=== PATIENT | female | born 1995 | race Caucasian/White ===

== ENCOUNTER 2018-03-16 19:16 | Emergency (ER) | payer OTHER ==
[2018-03-16 21:25] LABS: URINE BLOOD (Dip) POC 2+ (NEGATIVE); URINE GLUCOSE (Dip) POC Negative (NEGATIVE); URINE KETONES (Dip) POC Trace (NEGATIVE); URINE LEUKOCYTE EST (Dip) POC 1+ (NEGATIVE); URINE NITRITE (Dip) POC Negative (NEGATIVE); URINE TOTAL PROTEIN POC 3+ (NEGATIVE)
[2018-03-16] MEDS ORDERED: LIDOCAINE 1% (MPF) 5 ML VIAL (22:04)
[2018-03-16] MEDS: ACETAMINOPHEN 500 MG TAB PO (22:06)
[2018-03-16] MEDS: CEFTRIAXONE 1 GM INJ IM (22:06)
== END 2018-03-16 22:57 | disposition home or self-care (01) ==
LOC: FTE 19:16
DX: N39.0 Urinary tract infection, site not specified (principal); R40.2412 Glasgow coma scale score 13-15, at arrival to emergency department
CPT/HCPCS: 81003; 81025; 96372; 99284-25